=== PATIENT | male | born 1940 | race Caucasian/White ===

== ENCOUNTER 2016-09-26 11:12 | Emergency (ER) | payer MEDICARE, MEDICAID ==
[~2016-09-26] VITALS: Ht 160 cm; Wt 56.8 kg
[2016-09-26 11:32] VITALS: BP 155/92; PULSE 94; RESP 18; O2SAT 97
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
[2016-09-26 14:09] LABS: BASOPHILS % (AUTO) 0.4 % (0-3); EOSINOPHILS % (AUTO) 1.9 % (0-5); MONOCYTES % (AUTO) 11.2 % (4-12); Mean Corpuscular Volume 98.6 fL (81-100); NEUTROPHILS % (AUTO) 61.8 % (40-74); Platelet Count 241 bil/L (150-400)
--- NOTE | 2016-09-26 16:21 | DRSVH ---
PROCEDURE: CT BRAIN WITHOUT CONTRAST ([id number]) INDICATIONS: psychosis TECHNIQUE: Noncontrast 4.5 mm thick angled axial sections acquired from the foramen magnum to the vertex, with c oronal reformats. COMPARISON: None. FINDINGS: Image quality: Partially degraded by motion artifact. CSF spaces: Basal cisterns are patent. No extra-axial fluid collections. The ventricles are symmet sheldon in size and shape. Brain: No intracranial bleeds or masses. There is cerebral volume loss for age, with resultant vent ricular and sulcal prominence. There are periventricular and deep white matter chronic small vessel ischemic changes. There is intracranial internal carotid artery atherosclerosis. Skull and face: Calvarium and visualized facial bones appear intact, without suspicious lesions. Sinuses: Visualized sinuses and mastoids are clear. IMPRESSION: 1. No explanation for psychosis. 2. No acute intracranial abnormality. Dictated by: Shayna Omer M.D. on 09/26/2016 at 16:11 Approved by: Shayna Omer M.D. on 09/26/2016 at 16:19
[2016-09-26 18:47] VITALS: BP 155/92; PULSE 94; RESP 18; O2SAT 97
== END 2016-09-26 17:40 | disposition home or self-care (01) ==
LOC: SED 11:12
DX: F22 Delusional disorders (principal); Z59.0 Homelessness